=== PATIENT | male | born 1930 | race Caucasian/White ===

== ENCOUNTER 2016-11-06 17:51 | Emergency (ER) | payer MEDICARE, BC ==
[2016-11-06 18:33] VITALS: BP 135/65
--- NOTE | 2016-11-06 19:25 | UC ---
Laceration HPI - HPI Summary HPI Summary: 86 yo M cut his right lower leg on a rototiller approx 3 pm today. States the rototiller fell on him. Denies other injury. No LOC, no head injury. No neck pain or back pain. Pt is on warfarin, states his most recent INR was last week and was fine. Also cannot have tetanus due to allergic reaction. - History Of Current Complaint Chief Complaint: UCLaceration Stated Complaint: RIGHT LEG LAC Time Seen by Provider: 11/06/16 19:24 Hx Obtained From: Patient Laceration Location: Knee - right ant tibia Mechanism Of Injury: Sharp Trauma Onset/Duration: Sudden Onset, Lasting Hours, Still Present Severity: Moderate Pain Intensity: 3 Pain Scale Used: 0-10 Numeric Aggravating Factors: Nothing - Allergies/Home Medications Allergies/Adverse Reactions: Allergies Allergy/AdvReac Type Severity Reaction Status Date / Time Amiodarone Allergy Unknown Verified 11/06/16 19:25 Reaction Details Tetanus Toxoid Allergy Swelling Verified 11/06/16 18:39 Of Face,Lips,& Throat Home Medications: Home Medications Carvedilol TAB* [Coreg TAB*] 25 mg PO BID 11/06/16 [History Confirmed 11/06/16] Furosemide TAB* [Lasix TAB*] 40 mg PO BID 11/06/16 [History Confirmed 11/06/16] [id number] 1 tab PO DAILY 11/06/16 [History Confirmed 11/06/16] Warfarin TAB(*) [Coumadin TAB(*)] 1 mg PO 1700 11/06/16 [History Confirmed 11/06] PMH/Surg Hx/FS Hx/Imm Hx Cardiovascular History Of: Reports: Cardiac Disorders - bradycardia, cardiomyopthay, Defibrillator, Afib - Surgical History Surgical History: Yes Surgery Procedure, Year, and Place: Defibrillator implant - Family History Known Family History: Positive: Cardiac Disease - Social History Occupation: Retired Lives: With Family Alcohol Use: None Substance Use Type: None Smoking Status (MU): Never Smoked Tobacco Review of Systems Constitutional: Negative Skin: Other - laceration right ant tibia Eyes: Negative ENT: Negative Respiratory: Negative Cardiovascular: Negative Gastrointestinal: Negative Genitourinary: Negative Motor: Negative Neurovascular: Negative Musculoskeletal: Negative Neurological: Negative Psychological: Negative All Other Systems Reviewed And Are Negative: Yes Physical Exam Triage Information Reviewed: Yes Appearance: Well-Appearing, Well-Nourished, Pain Distress Vital Signs: Initial Vital Signs Temp 97.9 F 11/06/16 18:19 Pulse 69 11/06/16 18:19 Resp 14 11/06/16 18:19 BP 135/65 11/06/16 18:19 Pulse Ox 99 11/06/16 18:19 Vital Signs Reviewed: Yes Eyes: Positive: Conjunctiva Clear ENT: Positive: Normal ENT inspection Neck: Positive: Supple Respiratory: Positive: Lungs clear, Normal breath sounds, No respiratory distress Cardiovascular: Positive: RRR, No Murmur, Pulses Normal, Brisk Capillary Refill Musculoskeletal: Positive: Strength Intact, ROM Intact Neurological: Positive: Alert, Muscle Tone Normal Psychological Exam: Normal Skin: Positive: Other - laceration 6cm right ant tibia Laceration Repair - Laceration Repair 1 Description: Linear Laceration Size After Repair: Length (cm) - 6, Width (mm) - 3, Depth (mm) - 2 Contamination/FB Removal: no Modified For Repair: No Type Injection: Local Anesthesia Used: 2.0% Lido Cleansing Completed Via Routine Prep: Yes Irrigation With Pressure Irrigation Device: Yes Closure Material: Sutures Closure Method: Single Layer Suture Of: Skin Suture Type: Nylon - 15 Laceration Course/Dx - Course/Dx Course Of Treatment: daughter and granddaughter with pt. They all decline xray. "He walked in here". sutured, amoxicillin for prophylaxis against infection - Differential Dx - Laceration/Wound Differental Diagnoses: Foreign Body, Fracture, Laceration Provider Diagnoses: lower leg laceration with sutures. Discharge - Discharge Plan Condition: Stable Disposition: HOME Prescriptions: Amoxicillin CAP* [Amoxicillin 500 MG CAP*] 500 mg PO TID #21 cap Patient Education Materials: Care For Your Stitches (ED), Laceration (ED) Referrals: Jocelyne Sage DO [Primary Care Provider] - Additional Instructions: You have 15 stitches. We gave the first dose of amoxicillin tonight to prevent infection. jig grinder set up operator the prescription for the rest of the medication tomorrow. Please have your stitches removed in 10-14 days. Keep the wound clean and dry and watch for infection. Change the bandage daily after washing with soap and water. Use the priyanka wrap over the bandage to protect it. Return to urgent care or see your doctor if you have any new or worsening symptoms.
[2016-11-06] MEDS ORDERED: Lidocaine 2% PF * 5 ML VIAL INJ ONE ×2 (19:44→20:39)
[2016-11-06] MEDS ORDERED: Amoxicillin CAP* 500 MG PO ONE (20:42)
== END 2016-11-06 20:56 | disposition home or self-care (01) ==
LOC: UCCORT 17:51
DX: S81.811A Laceration without foreign body, right lower leg, initial encounter (principal); W45.8XXA Other foreign body or object entering through skin, initial encounter; Y93.9 Activity, unspecified; Y92.9 Unspecified place or not applicable; Z88.7 Allergy status to serum and vaccine; R00.1 Bradycardia, unspecified; I42.9 Cardiomyopathy, unspecified; Z95.0 Presence of cardiac pacemaker; Z79.01 Long term (current) use of anticoagulants
CPT/HCPCS: 12002; 99212; A9270-GY; G0463

== ENCOUNTER 2016-11-19 12:19 | Emergency (ER) | payer MEDICARE, BC ==
[2016-11-19 12:29] VITALS: BP 105/59
--- NOTE | 2016-11-19 12:47 | UC ---
HPI Wound/Suture Re-check - HPI Summary HPI Summary: here for suture removal sutures were placed here 14 days ago for a laceration of the right kline area has no complaint today , no pain , no discharge for the wound - History Of Current Complaint Chief Complaint: UCSkin Stated Complaint: SUTURE REMOVAL Time Seen by Provider: 11/19/16 12:24 Hx Obtained From: Patient Onset/Duration: Sudden Onset, Lasting Days - 14, Still Present Severity: Moderate Procedure Type: suture removal Surgery Date: 11/06/16 Full Body (No Head): 1 - 8 cm laceration right kline - Allergies/Home Medications Allergies/Adverse Reactions: Allergies Allergy/AdvReac Type Severity Reaction Status Date / Time Amiodarone Allergy Unknown Verified 11/19/16 12:24 Reaction Details Tetanus Toxoid Allergy Swelling Verified 11/19/16 12:24 Of Face,Lips,& Throat PMH/Surg Hx/FS Hx/Imm Hx Cardiovascular History Of: Reports: Cardiac Disorders - bradycardia, cardiomyopthay, Defibrillator, Afib - Surgical History Surgical History: Yes Surgery Procedure, Year, and Place: Defibrillator implant - Family History Known Family History: Positive: Cardiac Disease - Social History Alcohol Use: None Substance Use Type: None Smoking Status (MU): Never Smoked Tobacco Review of Systems Constitutional: Negative Eyes: Negative ENT: Negative Respiratory: Negative All Other Systems Reviewed And Are Negative: Yes Physical Exam Triage Information Reviewed: Yes Appearance: Well-Appearing, No Pain Distress, Well-Nourished Vital Signs: Initial Vital Signs Temp 98.4 F 11/19/16 12:26 Pulse 54 11/19/16 12:26 Resp 18 11/19/16 12:26 BP 105/59 11/19/16 12:26 Pulse Ox 100 11/19/16 12:26 Eye Exam: Normal Eyes: Positive: Conjunctiva Clear ENT: Positive: Normal ENT inspection, Hearing grossly normal Neck: Positive: Supple, Nontender, No Lymphadenopathy Respiratory: Positive: Chest non-tender, Lungs clear, Normal breath sounds Cardiovascular: Positive: RRR, No Murmur, Pulses Normal Skin: Positive: Other - right kline : + 8 cm laceration , sutures are intact, healing well, no swelling, no erythema, not tender Course/Dx - Differential Dx - Laceration/Wound Provider Diagnoses: suture removal Discharge - Discharge Plan Condition: Stable Disposition: HOME Patient Education Materials: Stitches Removal (ED) Referrals: Jocelyne Sage DO [Primary Care Provider] - If Needed
== END 2016-11-19 12:54 | disposition home or self-care (01) ==
LOC: UCCORT 12:19
DX: S81.811D Laceration without foreign body, right lower leg, subsequent encounter (principal); W45.8XXD Other foreign body or object entering through skin, subsequent encounter; Y92.9 Unspecified place or not applicable; I48.91 Unspecified atrial fibrillation; Z95.810 Presence of automatic (implantable) cardiac defibrillator; Z88.7 Allergy status to serum and vaccine; Z88.8 Allergy status to other drugs, medicaments and biological substances
CPT/HCPCS: 99211; G0463

== ENCOUNTER 2016-11-25 11:49 | Emergency (ER) | payer MEDICARE, BC ==
[2016-11-25 12:04] VITALS: BP 109/51
--- NOTE | 2016-11-25 12:18 | UC ---
Neck Pain HPI - HPI Summary HPI Summary: Patient has had 2 weeks of cervical spine pain, cant turn or move neck without pain, it is radiating down the left arm, denies any trauma, Hx of gout and is on blood thinners, patient sees a chiropractor regularly and was sent for evaluation by the chiropractor today. - History of Current Complaint Chief Complaint: UCBackPain Stated Complaint: NECK PAIN Time Seen by Provider: 11/25/16 12:04 Hx Obtained From: Patient Onset/Duration Of Injury/Symptoms: Weeks Mechanism Of Injury: No Known Trauma Timing: Constant Onset/Duration: Gradual Onset, Lasting Weeks Severity: Moderate Location: Discrete At: - c4 and c5 spinus process Character: Dull, Aching Aggravating Factors: Nothing Alleviating Factors: Nothing Associated Signs & Symptoms: Positive: Paresthesia - Allergies/Home Medications Allergies/Adverse Reactions: Allergies Allergy/AdvReac Type Severity Reaction Status Date / Time Amiodarone Allergy Unknown Verified 11/25/16 11:58 Reaction Details Tetanus Toxoid Allergy Swelling Verified 11/25/16 11:58 Of Face,Lips,& Throat Home Medications: Home Medications Probenecid TAB* [Benemid TAB*] 500 mg PO BID 11/25/16 [History Confirmed ] PMH/Surg Hx/FS Hx/Imm Hx Previously Healthy: Yes Cardiovascular History Of: Reports: Cardiac Disorders - bradycardia, cardiomyopthay, Defibrillator, Afib - Surgical History Surgical History: Yes Surgery Procedure, Year, and Place: Defibrillator implant - Family History Known Family History: Positive: Cardiac Disease - Social History Alcohol Use: None Substance Use Type: None Smoking Status (MU): Never Smoked Tobacco Review Of Systems Constitutional: Positive: Negative Skin: Positive: Negative Eyes: Positive: Negative ENT: Positive: Negative Respiratory: Positive: Negative Cardiovascular: Positive: Negative Gastrointestinal: Positive: Negative Genitourinary: Positive: Negative Musculoskeletal: Positive: Arthralgia, Myalgia Neurological: Positive: Headache Psychological: Positive: Negative All Other Systems Reviewed And Are Negative: Yes Physical Exam Triage Information Reviewed: Yes Appearance: Well-Nourished, Ill-Appearing, Pain Distress Vital Signs: Initial Vital Signs Temp 98.9 F 11/25/16 11:54 Pulse 64 11/25/16 11:54 Resp 18 11/25/16 11:54 BP 109/51 11/25/16 11:54 Pulse Ox 100 11/25/16 11:54 Vital Signs Reviewed: Yes Eye Exam: Normal Eyes: Positive: Conjunctiva Clear, Other: - large swelling under the eyes ENT Exam: Normal ENT: Positive: Normal ENT inspection, Hearing grossly normal, Pharynx normal, TMs normal Dental Exam: Normal Neck: Positive: Nontender - over c4 and c5, No Lymphadenopathy, Other: - ROM is very limited Respiratory Exam: Normal Respiratory: Positive: Chest non-tender, Lungs clear, Normal breath sounds Cardiovascular Exam: Normal Cardiovascular: Positive: RRR, No Murmur, Pulses Normal Abdominal Exam: Normal Abdomen Description: Positive: Nontender, No Organomegaly, Soft Bowel Sounds: Positive: Present Musculoskeletal Exam: Normal Musculoskeletal: Positive: Strength Intact, ROM Intact, No Edema Neurological Exam: Normal Neurological: Positive: Alert, Muscle Tone Normal Psychological Exam: Normal Skin Exam: Normal Neck Pain Course/Dx - Course Course Of Treatment: hx obtained, exam performed, meds reviewed, xray obtained of c spine no acute process, advances DJD. copy of xray and report given to patient - Differential Dx/Diagnosis Differential Dx/HQI/PQRI: Arthritis, Cervical Fracture, Dislocation, Sprain, Strain Provider Diagnoses: Cervical DJD Discharge - Discharge Plan Condition: Stable Disposition: HOME Patient Education Materials: Osteoarthritis (ED), Neck Pain (ED) Additional Instructions: 1. there is no acute injury in your nek at this time 2. I recommend heat and stretching to alleviate spasm. 3. Follow up as needed.
--- NOTE | 2016-11-25 12:59 | RAD ---
INDICATION: Atraumatic neck pain COMPARISON: None TECHNIQUE: Routine five-view imaging was performed FINDINGS: Bones: The bony structures are osteopenic. There are no acute appearing findings. There is advanced multilevel degenerative disc disease most severe between C3 and C5. There is a mild retrolisthesis of C3 on C4 and a mild anterolisthesis of C4 on C5 and C5 and C6. These are likely on the basis of degenerative change. There is multilevel facet arthropathy. Craniocervical junction: The odontoid and atlantodental interval are normal. Alignment: As above. There is also tilting of the head to the right Disc spaces: As above Soft tissues: The prevertebral soft tissues are normal. There are carotid arterial calcifications bilaterally IMPRESSION: ADVANCED MULTILEVEL DEGENERATIVE DISC DISEASE.
== END 2016-11-25 13:11 | disposition home or self-care (01) ==
LOC: UCCORT 11:49
DX: M50.30 Other cervical disc degeneration, unspecified cervical region (principal); I48.91 Unspecified atrial fibrillation; Z95.810 Presence of automatic (implantable) cardiac defibrillator; Z88.7 Allergy status to serum and vaccine; Z88.8 Allergy status to other drugs, medicaments and biological substances
CPT/HCPCS: 72050; 99211; G0463

== ENCOUNTER 2019-02-13 13:40 | Emergency (ER) | payer MEDICARE, BC ==
[2019-02-13 15:10] VITALS: BP 136/67
--- NOTE | 2019-02-13 16:12 | UC ---
Throat Pain/Nasal Everardo HPI - HPI Summary HPI Summary: 89 yo male with fairly acute onset of painful swallowing about 7 days ago Has no fever or wt loss needs to chew his food "until it is mush" or it feels like it will get stuck - History of Current Complaint Chief Complaint: UCGeneralIllness Stated Complaint: THROAT COMP Time Seen by Provider: 02/13/19 15:10 Hx Obtained From: Patient Onset/Duration: Sudden Onset, Lasting Weeks Severity: Moderate Pain Intensity: 5 Pain Scale Used: 0-10 Numeric Cough: None Associated Signs & Symptoms: Positive: Dysphagia - Epiglottits Risk Factors Epiglottis Risk Factors: Negative - Allergies/Home Medications Allergies/Adverse Reactions: Allergies Allergy/AdvReac Type Severity Reaction Status Date / Time amiodarone Allergy Unknown Verified 02/13/19 15:10 Reaction Details Tetanus Vaccines and Toxoid Allergy Swelling Verified 02/13/19 15:10 Of Face,Lips,& Throat PMH/Surg Hx/FS Hx/Imm Hx Previously Healthy: Yes Cardiovascular History: Hypertension, Pacemaker/ICD - Surgical History Surgical History: Yes Surgery Procedure, Year, and Place: Defibrillator implant. Pacemaker, Defrillator was turned off 06/2018 - Family History Known Family History: Positive: Cardiac Disease - Social History Occupation: Retired - exposure to asbestos both in [employer] and while working for [employer] Alcohol Use: None Substance Use Type: None Smoking Status (MU): Never Smoked Tobacco Review of Systems All Other Systems Reviewed And Are Negative: Yes Constitutional: Positive: Negative Skin: Positive: Negative Eyes: Positive: Negative ENT: Positive: Sore Throat Respiratory: Positive: Negative Cardiovascular: Positive: Negative Gastrointestinal: Positive: Negative Genitourinary: Positive: Negative Motor: Positive: Negative Neurovascular: Positive: Negative Musculoskeletal: Positive: Negative Neurological: Positive: Negative Psychological: Positive: Negative Physical Exam Triage Information Reviewed: Yes Appearance: Well-Appearing, No Pain Distress, Well-Nourished Vital Signs: Initial Vital Signs Temp 97.8 F 02/13/19 15:05 Pulse 67 02/13/19 15:05 Resp 16 02/13/19 15:05 BP 136/67 02/13/19 15:05 Pulse Ox 100 02/13/19 15:05 Vital Signs Reviewed: Yes Eyes: Positive: Conjunctiva Clear ENT: Positive: Pharynx normal. Negative: Hearing grossly normal - bilat hearing aids, Nasal congestion, Nasal drainage, Tonsillar swelling, Tonsillar exudate, Trismus, Muffled voice, Hoarse voice, Dental tenderness, Sinus tenderness, Uvula midline Neck: Positive: Supple, Nontender, No Lymphadenopathy Respiratory: Positive: Lungs clear, Normal breath sounds, No respiratory distress, No accessory muscle use Cardiovascular: Positive: RRR - with occas extrasystoles Musculoskeletal: Positive: No Edema Neurological: Positive: Alert Psychological Exam: Normal Skin Exam: Normal Diagnostics - Radiology No standard instances Radiology Interpretation Completed By: Radiologist Summary of Radiographic Findings: 1. CARDIOMEGALY. 2. CALCIFIED PLEURAL PLAQUES AND PLEURAL THICKENING SUGGESTIVE OF CHRONIC ASBESTOS. EXPOSURE. IMPRESSION: THERE IS INCREASED SOFT TISSUE DENSITY INFERIOR TO THE EPIGLOTTIS OVERLYING. THE PROXIMAL TRACHEA. RECOMMEND A CT OF THE NECK WITH CONTRAST FOR FURTHER EVALUATION. Throat Pain/Nasal Course/Dx - Differential Dx/Diagnosis Provider Diagnosis: Dysphagia, Pleural plaque due to asbestos exposure Discharge - Sign-Out/Discharge Documenting (check all that apply): Patient Departure All imaging exams completed and their final reports reviewed: Yes - Discharge Plan Condition: Stable Disposition: HOME Patient Education Materials: Dysphagia (ED) Referrals: Erin Sage DO [Primary Care Provider] - Additional Instructions: You have an appointment directly next door to us....tomorrow at 11AM You will see Dr. Erazo who is an command and control specialist Your symptoms need further investigation to determine the cause Blood work is pending He will be able to see your XRs soft no chew diet As an aside you have calcifications in your lungs from asbestos exposure - Billing Disposition and Condition Condition: STABLE Disposition: Home
--- OUTSIDE RECORDS SUMMARY | 2019-02-13 18:13 | XMS REPORT | Continuity of Care Document ---
:1930 External Reference #:[id number] Author Name Manda Lai, GORDON, RADIATOR TESTER Address [address] [place] [address] Care Team Providers Name Role Phone Homero Lyons MD [facility] Care Team Information Cosmetologist Apprentice Unavailable Erin Sage DO Primary Care Physician Unavailable Payers Date Identification Numbers Payment Provider Subscriber Policy Number: [id number] Medicare [place]arez PayID: [id number] [address] [place] [address] Effective: 2012 Policy Number: [id number] [facility] Rob[place] Suarez PayID: [id number] [address] [address] [place] [address] Effective: 1995 Policy Number: [id number] Medicare Arthur W Payne Expires: 2018 Group Name: Medicare [address] PayID: [id number] [place] [address] Problems Active Problems Provider Date Primary cardiomyopathy Manda Lai, GORDON, Onset: 08/04/2011 [employer] Atrial fibrillation Manda Lai, GORDON, Onset: 08/04/2011 [employer] TE[employer] Benign essential hypertension Manda Lai, MSN, Onset: 08/04/2011 [employer] TE[employer] Automatic implantable cardiac Manda Lai, GORDON, 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 [employer]IATOR TE[employer] Diarrhea Homero Lyons M.D., Onset: 03/02/2012 [facility] Anticoagulant agent Homero Lyons M.D., Onset: 09/05/2012 [facility] Cardiac pacemaker in situ Homero Lyons M.D., Onset: 09/05/2012 [facility] Rheumatic disease of tricuspid valve Homero Lyons M.D., Onset: 2013 [facility] Cardiomyopathy, unspecified Homero Lyons M.D., Onset: 06/28/2015 [facility] Essential hypertension Homero Lyons M.D., Onset: 06/28/2015 [facility] Edema Homero Lyons M.D., Onset: 11/13/2015 [facility] Chronic systolic (congestive) heart Homero Lyons M.D., Onset: 2015 failure [facility] Impaired renal function disorder Homero Lyons M.D., Onset: 09/11/2015 [facility] Chronic atrial fibrillation Homero Lyons M.D., Onset: 09/11/2015 [facility] Preoperative cardiovascular Homero Lyons M.D., Onset: 09/11/2015 examination [facility] Family History Date Family Member(s) Observation Comments : (age 74 Father due to [place] Years) Mother due to Natural () - in 90s Causes Social History Type Date Description Comments Sex Unknown Lives With Diet Patient follows no dietary restrictions Occupation Retired Tobacco Use Start: Unknown Never Smoked Cigarettes ETOH Use Rarely consumes alcohol Tobacco Use Start: Unknown Patient has never smoked Smoking Status Reviewed: 01/17/19 Patient has never smoked Allergies, Adverse Reactions, Alerts Active Allergies Reaction Severity Comments Date Tetanus 08/04/2011 Amiodarone Medications Active Medications SIG Qnty Indications Ordering Date Provider Warfarin Sodium 1 tab by mouth 180tabs Homero Lyons 2mg every day (1 mg) Aiden Villavicencio, [facility] Tablets Carvedilol take one tablet Unknown 6.25mg Tablets by mouth twice a day Furosemide 1/2 by mouth 90tabs I50.22 Lai, Manda 40mg Tablets every day GORDON Holley, RADIATOR TESTER Osteo Bi-Flex Regular 2 by mouth every Unknown Strength morning 250-200mg Tablets Probenecid 1 by mouth every Unknown 500mg Tablets day Acetaminophen take 1-2 tablets Unknown 500mg by mouth every 4 Tablets to 6 hours History Medications Metolazone 1 by mouth every 30tabs Homero Lyons 11/13/2015 - 5mg day 20 min before Aiden Villavicencio, [facility] Unknown Tablets lasix Lasix 1-2 tabs by mouth I50.22 Manda Lai 10/15/2015 - 20mg as needed for GORDON Holley, Unknown Tablets weight gain of 2-3 RADIATOR TESTER pounds over 2-3 days. Lasix 2 tabs by mouth I50.22 LaiBrandia 10/07/2015 - 20mg every day GORDON Holley, 10/15/2015 Tablets RADIATOR TESTER Zofran Odt 1 tab sublingual 30tabs R11.2 Manda Lai 10/07/2015 - 8mg D4sdhyi GORDON Holley, Unknown Tablets Dispers RADIATOR TESTER Potassium 1 by mouth twice a 180tabs R60.9 Homero Lyons 10/03/2015 - Chloride ER day Aiden Villavicencio, [facility] 10/07/2015 20Meq Tablets ER Lovenox subcutaneous twice 10units Homero Lyons 09/11/2015 - a day for 2 days Aiden Villavicencio, [facility] Unknown 80mg/0.8ML before the surgery Solution and two days after the surgery or until Inr 2-3 Lasix 1 by mouth daily 90tabs I42.9 Kia Carver MD 06/28/2015 - 20mg Unknown Tablets Furosemide 1/2 tab by mouth 428.0 Manda Lai 03/08/2015 - 40mg every day GORDON Holley, Unknown Tablets RADIATOR TESTER Furosemide 1 by mouth every 90tabs 428.0 Homero Lyons 01/17/2015 - 40mg day Aiden Villavicencio, [facility] 03/08/2015 Tablets Furosemide 1 by mouth every 90tabs I50.22 Homero Lyons 10/31/2014 - 20mg day as needed for Aiden Villavicencio, [facility] 12/21/2018 Tablets weight gain of 2 or more pounds per day Furosemide 2 tabs by mouth in 240tabs 428.0 LaiBrandia 10/24/2014 - 20mg the morning and 1 GORDON Holley, 10/31/2014 Tablets in the afternoon RADIATOR TESTER Klor-Con 10 1-2 tabs by mouth 180tabs 428.0 Lai, Manda 10/24/2014 - every day as GORDON Hloley, 10/25/2014 10Meq Tablets ER directed RADIATOR TESTER Tylenol PM Extra po prn 90tabs Unknown - Strength Unknown 500-25mg Tablets Osteo Bi-Flex 1 po qd Unknown - Advanced Triple Unknown Strength Tablets Furosemide take one tablet by 90tabs 428.0 Lai, Manda - 20mg mouth every day GORDON Holley, 10/24/2014 Tablets RADIATOR TESTER Carvedilol take one tablet by 180tabs Homero Lyons - 25mg mouth twice daily Aiden Villavicencio, [facility] 12/21/2018 Tablets Lisinopril take one tablet by 90tabs Kia Carver MD - 20mg mouth once daily Unknown Tablets Lasix 1 by mouth every 90tabs I42.9 Kia Carver MD - 20mg day 06/28/2015 Tablets Amlodipine 1 by mouth every I10 Unknown - Besylate day 10/15/2015 5mg Tablets Lasix 4 tabs in the am I42.9 Unknown - 20mg and 4 in pm 10/07/2015 Tablets R60.9 I42.0 Lisinopril 1 by mouth every day Unknown - Unknown 2.5mg Tablets Vital Signs Date Vital Result Comment 01/17/2019 2:00pm BP Systolic Sitting Left Arm 132 mmHg BP Diastolic Sitting Left Arm 80 mmHg Heart Rate 70 /min Respiratory Rate 18 /min Height 69 inches 5'9" Weight 165.00 lb BMI (Body Mass Index) 24.4 kg/m2 BSA (Body Surface Area) 1.90 m2 [place] body weight in kilograms 73 kg O2 % BldC Oximetry 97 % Ora 12/21/2018 7:02am BP Systolic Sitting Right Arm 112 mmHg BP Diastolic Sitting Right Arm 62 mmHg Heart Rate 90 /min Respiratory Rate 19 /min Height 69 inches 5'9" Weight 167.00 lb BMI (Body Mass Index) 24.7 kg/m2 BSA (Body Surface Area) 1.91 m2 [place] body weight in kilograms 73 kg O2 % BldC Oximetry 96 % 11/13/2015 11:46am BP Systolic Sitting Right Arm 122 mmHg BP Diastolic Sitting Right Arm 68 mmHg Respiratory Rate 16 /min Height 69 inches 5'9" Weight 175.00 lb BMI (Body Mass Index) 25.8 kg/m2 BSA (Body Surface Area) 1.95 m2 11/07/2015 11:25am BP Systolic Sitting Left Arm 116 mmHg BP Diastolic Sitting Left Arm 78 mmHg Heart Rate 76 /min Respiratory Rate 16 /min Height 69 inches 5'9" Weight 176.00 lb BMI (Body Mass Index) 26.0 kg/m2 BSA (Body Surface Area) 1.96 m2 10/15/2015 10:33am BP Systolic Sitting Left Arm 128 mmHg BP Diastolic Sitting Left Arm 58 mmHg Heart Rate 72 /min Height 69 inches 5'9" Weight 160.00 lb BMI (Body Mass Index) 23.6 kg/m2 BSA (Body Surface Area) 1.88 m2 10/07/2015 11:11am BP Systolic Sitting Left Arm 120 mmHg BP Diastolic Sitting Left Arm 66 mmHg Heart Rate 72 /min Respiratory Rate 16 /min Height 70 inches 5'10" Weight 168.00 lb BMI (Body Mass Index) 24.1 kg/m2 BSA (Body Surface Area) 1.94 m2 09/11/2015 11:06am BP Systolic Sitting Right Arm 130 mmHg BP Diastolic Sitting Right Arm 80 mmHg Heart Rate 63 /min Respiratory Rate 16 /min Height 70 inches 5'10" Weight 183.00 lb BMI (Body Mass Index) 26.3 kg/m2 BSA (Body Surface Area) 2.01 m2 06/28/2015 10:09am BP Systolic Sitting Left Arm 110 mmHg BP Diastolic Sitting Left Arm 68 mmHg Heart Rate 60 /min Respiratory Rate 16 /min Height 70 inches 5'10" Weight 192.00 lb BMI (Body Mass Index) 27.5 kg/m2 BSA (Body Surface Area) 2.05 m2 02/28/2015 10:54am BP Systolic Sitting Left Arm 110 mmHg BP Diastolic Sitting Left Arm 58 mmHg Heart Rate 72 /min Respiratory Rate 16 /min Height 70 inches 5'10" Weight 184.00 lb BMI (Body Mass Index) 26.4 kg/m2 BSA (Body Surface Area) 2.01 m2 01/17/2015 3:07pm BP Systolic Sitting Left Arm 104 mmHg BP Diastolic Sitting Left Arm 62 mmHg Heart Rate 62 /min Respiratory Rate 19 /min Height 70 inches 5'10" Weight 192.00 lb BMI (Body Mass Index) 27.5 kg/m2 BSA (Body Surface Area) 2.05 m2 10/31/2014 3:45pm BP Systolic Sitting Right Arm 122 mmHg BP Diastolic Sitting Right Arm 70 mmHg Heart Rate 68 /min Respiratory Rate 16 /min Height 70 inches 5'10" Weight 183.00 lb BMI (Body Mass Index) 26.3 kg/m2 BSA (Body Surface Area) 2.01 m2 10/24/2014 11:50am BP Systolic Sitting Right Arm 118 mmHg BP Diastolic Sitting Right Arm 70 mmHg Heart Rate 58 /min Respiratory Rate 18 /min Height 70 inches 5'10" Weight 193.00 lb BMI (Body Mass Index) 27.7 kg/m2 BSA (Body Surface Area) 2.06 m2 04/19/2014 1:09pm BP Systolic Sitting Left Arm 122 mmHg BP Diastolic Sitting Left Arm 68 mmHg Heart Rate 66 /min Respiratory Rate 16 /min Height 70 inches 5'10" Weight 189.00 lb BMI (Body Mass Index) 27.1 kg/m2 BSA (Body Surface Area) 2.04 m2 09/06/2013 11:57am BP Systolic Sitting Right Arm 118 mmHg BP Diastolic Sitting Right Arm 62 mmHg Respiratory Rate 16 /min Height 70 inches 5'10" Weight 190.00 lb BMI (Body Mass Index) 27.3 kg/m2 BSA (Body Surface Area) 2.04 m2 09/05/2012 1:57pm BP Systolic Sitting Right Arm 116 mmHg BP Diastolic Sitting Right Arm 80 mmHg Heart Rate 60 /min Irregular Respiratory Rate 16 /min Height 70 inches 5'10" Weight 193.00 lb BMI (Body Mass Index) 27.7 kg/m2 03/02/2012 11:10am BP Systolic Sitting Right Arm 118 mmHg BP Diastolic Sitting Right Arm 70 mmHg Heart Rate 56 /min Irregular Respiratory Rate 16 /min Height 70 inches 5'10" Weight 186.00 lb BMI (Body Mass Index) 26.7 kg/m2 09/02/2011 10:57am BP Systolic Sitting Right Arm 122 mmHg BP Diastolic Sitting Right Arm 56 mmHg Heart Rate 64 /min Irregular Respiratory Rate 16 /min Height 70 inches 5'10" Weight 192.00 lb BMI (Body Mass Index) 27.5 kg/m2 08/04/2011 9:02am BP Systolic Sitting Right Arm 136 mmHg BP Diastolic Sitting Right Arm 72 mmHg BP Systolic Sitting Left Arm 140 mmHg BP Diastolic Sitting Left Arm 74 mmHg Heart Rate 58 /min Respiratory Rate 14 /min Height 70 inches 5'10" Weight 190.00 lb BMI (Body Mass Index) 27.3 kg/m2 Results Test Date Facility Test Result H/L Range Note Protime 01/17/2019 [facility] Protime 31.0 seconds High 12.0-14.4 1 [address] [place] [address] [phone] Inr 2.9 High 0.9-1.1 2 Anticoagulant Therapy? YES Date of Last Dose: T-1 Time of Last Dose: 0800 Protime 12/21/2018 [facility] Protime 26.8 seconds High 12.0-14.4 [address] [place] [address] [phone] Inr 2.4 High 0.9-1.1 3 Anticoagulant Therapy? YES Date of Last Dose: 12/20/18 Time of Last Dose: 0800 Protime 01/01/2016 [facility] Protime 30.9 seconds High 12.0-14.4 [address] [place] [address] [phone] Inr 3.1 High 0.9-1.1 4 Protime 12/25/2015 [facility] Protime 32.9 seconds High 12.1-14.9 [address] [place] [address] [phone] Inr 3.3 High 0.9-1.1 5 PT W/Inr 12/11/2015 [facility] 2.9 Normalized Ratio Protime 12/10/2015 [facility] Protime 29.6 seconds High 12.1-14.9 [address] [place] [address] [phone] Inr 2.9 High 0.9-1.1 6 Protime 11/28/2015 [facility] Protime 31.5 seconds High 12.1-14.9 [address] [place], [place] [address] [phone] Inr 3.0 High 0.9-1.1 7 Comprehensive Metabolic 11/07/2015 [facility] Glucose 95 mg/dL 74-106 Panel [address] [place], [place] [id number] [phone] BUN 22 mg/dL High 7-18 Creatinine 1.3 mg/dL 0.6-1.3 Glom Filtration Rate, Estimate 56 mL/min >60 If >60 mL/min >60 8 BUN/Creat 16.9 ratio Sodium 133 mmol/L Low 136-145 Potassium 4.6 mmol/L 3.5-5.1 Chloride 101 mmol/L 98-107 Carbon Dioxide 24 mmol/L 21-32 Anion Gap 8 mEq/L 8-16 Calcium 8.8 mg/dL 8.5-10.1 Total Protein 6.9 g/dL 6.4-8.2 Albumin 2.8 g/dL Low 3.4-5.0 Globulin 4.1 g/dL 1.9-4.3 Alb/Glob 0.7 ratio Bilirubin,Total 0.7 mg/dL 0.2-1.0 Sgot/Ast 19 U/L 15-37 SGPT/Alt 23 U/L 12-78 Alkaline Phosphatase 118 U/L High 45-117 Laboratory test 11/07/2015 [facility] Magnesium 2.4 mg/dL 1.8-2.4 finding [address] [place], [place] [id number] [phone] Basic Metabolic 10/17/2015 [facility] Sodium 128 mmol /L Low 133-145 Panel [phone] Potassium 6.0 mmol/L High 3.5-5.0 Chloride 95 mmol/L Low 101-111 Co2 Carbon Dioxide 26 mmol/L Normal 22-32 Anion Gap 7 mmol/L Normal 2-11 Glucose 97 mg/dL Normal 70-100 Blood Urea Nitrogen 66 mg/dL High 6-24 Creatinine 1.55 mg/dL High 0.67-1.17 BUN/Creatinine Ratio 42.6 High 8-20 Calcium 9.0 mg/dL Normal 8.6-10.3 Egfr Non- 42.8 Normal >60 Egfr 55.1 Normal >60 9 Protime 10/17/2015 [facility] Inr 7.82 Critical high 0.89-1.11 10 [phone] Protime 10/07/2015 [facility] Protime 20.5 seconds High 12.1-14.9 [address] [place], [place] [address] [phone] Inr 1.7 High 0.9-1.1 11 Laboratory test 10/07/2015 [facility] Magnesium 2.3 mg/dL 1.8-2.4 finding [address] [place], [place] [address] [phone] Comprehensive 10/07/2015 [facility] Glucose 136 mg/dL High 74-106 Metabolic Panel [address] [place], [place] [address] [phone] BUN 55 mg/dL High 7-18 Creatinine 1.5 mg/dL High 0.6-1.3 Glom Filtration Rate, Estimate 47 mL/min >60 If 57 mL/min >60 12 BUN/Creat 36.6 ratio Sodium 137 mmol/L 136-145 Potassium 4.3 mmol/L 3.5-5.1 Chloride 96 mmol/L Low 98-107 Carbon Dioxide 31 mmol/L 21-32 Anion Gap 10 mEq/L 8-16 Calcium 9.9 mg/dL 8.5-10.1 Total Protein 7.4 g/dL 6.4-8.2 Albumin 3.4 g/dL 3.4-5.0 Globulin 4.0 g/dL 1.9-4.3 Alb/Glob 0.9 ratio Bilirubin,Total 2.4 mg/dL High 0.2-1.0 Sgot/Ast 39 U/L High 15-37 SGPT/Alt 51 U/L 12-78 Alkaline Phosphatase 108 U/L 45-117 PT W/Inr 08/15/2015 [facility] 7.8 Normalized Ratio Protime 08/14/2015 [facility] Protime 31.1 seconds High 12.1-14.9 [address] [place], [place] [address] [phone] Inr 3.0 High 0.9-1.1 13 Basic Metabolic Panel 07/17/2015 [facility] Glucose 94 mg/dL 74-106 [address] [place] [address] [phone] BUN 47 mg/dL High 7-18 Creatinine 1.8 mg/dL High 0.6-1.3 Glom Filtration Rate, Estimate 38 mL/min >60 If 46 mL/min >60 14 BUN/Creat 26.1 ratio Sodium 141 mmol/L 136-145 Potassium 4.8 mmol/L 3.5-5.1 Chloride 108 mmol/L High 98-107 Carbon Dioxide 23 mmol/L 21-32 Anion Gap 10 mEq/L 8-16 Calcium 9.3 mg/dL 8.5-10.1 Protime 07/17/2015 [facility] Protime 31.4 seconds High 12.1-14.9 [address] [place] [address] [phone] Inr 3.0 High 0.9-1.1 15 Protime 06/11/2015 [facility] Protime 30.7 seconds High 12.1-14.9 [address] [place] [address] [phone] Inr 2.9 High 0.9-1.1 16 Protime 05/15/2015 [facility] Protime 32.4 seconds High 12.0-14.4 [address] [place] [address] [phone] Inr 3.1 High 0.9-1.1 17 Protime 04/17/2015 [facility] Protime 29.1 seconds High 12.0-14.4 [address] [place] [address] [phone] Inr 2.7 High 0.9-1.1 18 Protime 04/03/2015 [facility] Protime 32.7 seconds High 12.0-14.4 [address] [place], [place] [address] [phone] Inr 3.2 High 0.9-1.1 19 Laboratory test finding 03/06/2015 [facility] Magnesium 2.0 mg/dL 1.8-2.4 [address] [place] [address] [phone] Basic Metabolic Panel 03/06/2015 [facility] Glucose 95 mg/dL 74-106 [address] [place] [address] [phone] BUN 43 mg/dL High 7-18 Creatinine 2.0 mg/dL High 0.6-1.3 Glom Filtration Rate, Estimate 34 mL/min >60 If 41 mL/min >60 20 BUN/Creat 21.5 ratio Sodium 137 mmol/L 136-145 Potassium 4.9 mmol/L 3.5-5.1 Chloride 104 mmol/L 98-107 Carbon Dioxide 28 mmol/L 21-32 Anion Gap 5 mEq/L Low 8-16 Calcium 9.9 mg/dL 8.5-10.1 Protime 03/06/2015 [facility] Protime 29.6 seconds High 12.0-14.4 [address] [place] [address] [phone] Inr 2.8 High 0.9-1.1 21 Protime 02/06/2015 [facility] Protime 26.5 seconds High 12.0-14.4 [address] [place] [address] [phone] Inr 2.4 High 0.9-1.1 22 Protime 01/23/2015 [facility] Protime 18.2 seconds High 12.0-14.4 [address] [place] [address] [phone] Inr 1.5 High 0.9-1.1 23 Protime 01/09/2015 [facility] Protime 26.1 seconds High 12.0-14.4 [address] [place] [address] [phone] Inr 2.4 High 0.9-1.1 24 Protime 01/02/2015 [facility] Protime 35.0 seconds High 12.0-14.4 25 [address] [place] [address] [phone] Inr 3.5 High 0.9-1.1 26 Protime 12/19/2014 [facility] Protime 25.7 seconds High 12.0-14.4 [address] [place] [address] [phone] Inr 2.3 High 0.9-1.1 27 Protime 12/13/2014 [facility] Protime 38.6 seconds High 12.1-14.9 [address] [place] [address] [phone] Inr 3.9 High 0.9-1.1 28 Protime 11/28/2014 [facility] Protime 32.4 seconds High 12.1-14.9 [address] [place] [address] [phone] Inr 3.2 High 0.9-1.1 29 PT W/Inr 10/31/2014 [facility] 3.0 Normalized Ratio Basic Metabolic 10/31/2014 [facility] Glucose 83 mg/dL 74-106 Panel [address] [place] [address] [phone] BUN 48 mg/dL High 7-18 Creatinine 1.9 mg/dL High 0.6-1.3 Glom Filtration Rate, Estimate 36 mL/min >60 If 44 mL/min >60 30 BUN/Creat 25.2 ratio Sodium 140 mmol/L 136-145 Potassium 5.1 mmol/L 3.5-5.1 Chloride 106 mmol/L 98-107 Carbon Dioxide 29 mmol/L 21-32 Anion Gap 5 mEq/L Low 8-16 Calcium 9.4 mg/dL 8.5-10.1 Laboratory test 10/31/2014 [facility] Magnesium 1.9 mg/dL 1.8-2.4 finding [address] [place] [address] [phone] Protime 10/31/2014 [facility] Protime 30.8 seconds High 12.1-14.9 [address] [place] [address] [phone] Inr 3.0 High 0.9-1.1 31 Comprehensive Metabolic 10/24/2014 [facility] Glucose 89 mg/dL 74-106 Panel [address] [place] [address] [phone] BUN 40 mg/dL High 7-18 Creatinine 1.8 mg/dL High 0.6-1.3 Glom Filtration Rate, Estimate 38 mL/min >60 If 46 mL/min >60 32 BUN/Creat 22.2 ratio Sodium 140 mmol/L 136-145 Potassium 5.2 mmol/L High 3.5-5.1 Chloride 108 mmol/L High 98-107 Carbon Dioxide 24 mmol/L 21-32 Anion Gap 8 mEq/L 8-16 Calcium 9.1 mg/dL 8.5-10.1 Total Protein 7.1 g/dL 6.4-8.2 Albumin 3.5 g/dL 3.4-5.0 Globulin 3.6 g/dL 1.9-4.3 Alb/Glob 1.0 ratio Bilirubin,Total 0.8 mg/dL 0.2-1.0 Sgot/Ast 18 U/L 15-37 SGPT/Alt 14 U/L 12-78 Alkaline Phosphatase 82 U/L 45-117 Laboratory test finding 10/24/2014 [facility] Magnesium 1.9 mg/dL 1.8-2.4 [address] [place] [address] [phone] Thyroid Stim Hormone 2.45 uIU/mL 0.36-3.74 Protime 10/03/2014 [facility] Protime 26.1 seconds High 12.1-14.9 [address] [place] [address] [phone] Inr 2.4 High 0.9-1.1 33 Protime 09/05/2014 [facility] Protime 29.7 seconds High 12.1-14.9 [address] [place] [address] [phone] Inr 2.9 High 0.9-1.1 34 Protime 08/08/2014 [facility] Protime 27.8 seconds High 12.1-14.9 [address] [place] [address] [phone] Inr 2.7 High 0.9-1.1 35 Protime 07/25/2014 [facility] Protime 34.7 seconds High 12.1-14.9 [address] [place], [place] [address] [phone] Inr 3.6 High 0.9-1.1 36 Protime 06/25/2014 [facility] Protime 27.4 seconds High 12.1-14.9 [address] [place] [address] [phone] Inr 2.6 High 0.9-1.1 37 Protime 06/13/2014 [facility] Protime 34.1 seconds High 12.1-14.9 [address] [place] [address] [phone] Inr 3.5 High 0.9-1.1 38 Protime 05/16/2014 [facility] Protime 29.5 seconds High 12.1-14.9 [address] [place] [address] [phone] Inr 2.9 High 0.9-1.1 39 Basic Metabolic Panel 04/11/2014 [facility] Glucose 95 mg/dL 74-106 [address] [place] [address] [phone] BUN 33 mg/dL High 7-18 Creatinine 1.7 mg/dL High 0.6-1.3 Glom Filtration Rate, Estimate 41 mL/min >60 If 50 mL/min >60 40 BUN/Creat 19.4 ratio Sodium 141 mmol/L 136-145 Potassium 5.4 mmol/L High 3.5-5.1 Chloride 106 mmol/L 98-107 Carbon Dioxide 28 mmol/L 21-32 Anion Gap 12 mEq/L 8-16 Calcium 9.4 mg/dL 8.5-10.1 Protime 04/11/2014 [facility] Protime 26.4 seconds High 12.0-14.4 [address] [place] [address] [phone] Inr 2.5 High 0.9-1.1 41 Protime 03/14/2014 [facility] Protime 26.0 seconds High 12.1-14.9 [address] [place] [address] [phone] Inr 2.4 High 0.9-1.1 42 Protime 02/14/2014 [facility] Protime 27.1 seconds High 12.1-14.9 [address] [place] [address] [phone] Inr 2.6 High 0.9-1.1 43 Protime 01/17/2014 [facility] Protime 26.0 seconds High 12.1-14.9 [address] [place] [address] [phone] Inr 2.4 High 0.9-1.1 44 Protime 12/20/2013 [facility] Protime 23.4 seconds High 12.1-14.9 [address] [place] [address] [phone] Inr 2.1 High 0.9-1.1 45 Protime 11/22/2013 [facility] Protime 29.7 seconds High 12.1-14.9 [address] [place] [address] [phone] Inr 2.9 High 0.9-1.1 46 Protime 10/25/2013 [facility] Protime 30.5 seconds High 12.1-14.9 [address] [place] [address] [phone] Inr 3.0 High 0.9-1.1 47 Protime 09/22/2013 [facility] Protime 30.9 seconds High 12.0-14.4 [address] [place] [address] [phone] Inr 3.0 High 0.9-1.1 48 Protime 08/24/2013 [facility] Protime 23.2 seconds High 12.0-14.4 [address] [place] [address] [phone] Inr 2.1 High 0.9-1.1 49 Protime 07/27/2013 [facility] Protime 32.2 seconds High 12.0-14.4 [address] [place] [address] [phone] Inr 3.1 High 0.9-1.1 50 Protime 06/29/2013 [facility] Protime 30.6 seconds High 12.0-14.4 [address] [place] [address] [phone] Inr 2.9 High 0.9-1.1 51 Protime 06/15/2013 [facility] Protime 30.1 seconds High 12.0-14.4 [address] [place] [address] [phone] Inr 2.9 High 0.9-1.1 52 Protime 06/01/2013 [facility] Protime 28.6 seconds High 12.0-14.4 [address] [place] [address] [phone] Inr 2.7 High 0.9-1.1 53 Protime 05/25/2013 [facility] Protime 19.5 seconds High 12.1-14.9 [address] [place] [address] [phone] Inr 1.7 High 0.9-1.1 54 Protime 05/03/2013 [employer] Protime 27.1 seconds High 12.0-14.4 [address] [place] [address] [phone] Inr 2.5 High 0.9-1.1 55 Protime 04/19/2013 [employer] Protime 32.2 seconds High 12.0-14.4 [address] [place] [address] [phone] Inr 3.1 High 0.9-1.1 56 Protime 03/22/2013 [facility] Protime 27.8 seconds High 12.0-14.4 [address] [place] [address] [phone] Inr 2.6 High 0.9-1.1 57 Protime 02/22/2013 [facility] Protime 27.0 seconds High 12.1-14.9 [address] [place] [address] [phone] Inr 2.5 High 0.9-1.1 58 Protime 01/23/2013 [facility] Protime 28.0 seconds High 12.1-14.9 [address] [place] [address] [phone] Inr 2.6 High 0.9-1.1 59 Protime 12/26/2012 [facility] Protime 23.5 seconds High 12.1-14.9 [address] [place] [address] [phone] Inr 2.1 High 0.9-1.1 60 Protime 11/23/2012 [facility] Protime 27.7 seconds High 12.0-14.4 [address] [place] [address] [phone] Inr 2.6 High 0.9-1.1 61 Protime 10/26/2012 [employer] Protime 30.4 seconds High 12.0-14.4 [address] [place] [address] [phone] Inr 2.9 High 0.9-1.1 62 Protime 09/28/2012 [facility] Protime 25.1 seconds High 12.0-14.4 [address] [place] [address] [phone] Inr 2.3 High 0.9-1.1 63 Protime 08/31/2012 [facility] Protime 30.3 seconds High 12.1-14.9 [address] [place] [address] [phone] Inr 2.8 High 0.9-1.1 64 Protime 08/03/2012 [facility] Protime 24.4 seconds High 12.1-14.9 [address] [place] [address] [phone] Inr 2.2 High 0.9-1.1 65 Protime 07/06/2012 [facility] Protime 27.4 seconds High 12.1-14.9 [address] [place] [address] [phone] Inr 2.5 High 0.9-1.1 66 Protime 06/06/2012 [facility] Protime 31.1 seconds High 12.1-14.9 [address] [place] [address] [phone] Inr 2.9 High 0.9-1.1 67 Laboratory test 05/26/2012 [facility] Reticulocyte 1.0 % 0.8-2.1 finding 134 [facility] Count,[place] [address] [phone] CBC 05/26/2012 [facility] White Blood Count 7.4 3.4-10.5 134 [facility] [place] [address] [phone] Red Blood Count 4.02 M/uL Low 4.20-5.80 Hemoglobin 12.3 gm/dL Low 12.8-17.0 Hematocrit 38.4 % 38.0-48.0 Mean Cell Volume 95.5 fl 80.0-96.0 Mean Corpuscular HGB 30.6 pg 27.0-33.0 Mean Corpuscular HGB Conc 32.0 g/dL 31.7-36.0 Platelet Count 920 K/uL High 150-400 Red Cell Distri Width %CV 14.3 % 11.6-15.8 Mean Platelet Volume 10.6 fL 6.6-10.6 Comprehensive Metabolic 05/26/2012 [facility] Glucose 96 mg/dL 76-115 Panel [address] [place], [place] [id number] [phone] BUN 30 mg/dL High 5-23 Creatinine 1.4 mg/dL 0.5-1.4 Glom Filtration Rate, Estimate 52 mL/min >60 If >60 mL/min >60 68 BUN/Creat 21.4 ratio Sodium 142 mmol/L 136-145 Potassium 4.9 mmol/L 3.5-5.1 Chloride 110 mmol/L High 98-107 Carbon Dioxide 26 mEq/L 18-29 Anion Gap 11 mEq/L 8-16 Calcium 9.5 mg/dL 8.5-10.1 Total Protein 7.6 g/dL 6.3-8.0 Albumin 3.6 g/dL 3.5-5.0 Globulin 4.0 g/dL 1.9-4.3 Alb/Glob 0.9 ratio Bilirubin,Total 0.7 mg/dL 0.2-1.2 Sgot/Ast 16 U/L 16-40 SGPT/Alt 21 U/L Low 30-65 Alkaline Phosphatase 65 U/L 50-136 Vitamin B12 And 05/26/2012 [facility] Vitamin B12 368 pg/mL 200-900 69 Folate [address] [place], [place] [id number] [phone] Folic Acid 17.1 ng/mL High 6.0-15.4 Laboratory test 05/26/2012 [facility] Ferritin 249.3 ng/mL High 5-244 finding [address] [place] [address] [phone] Protime 05/09/2012 [facility] Protime 29.2 seconds High 12.1-14.9 [address] [place], [place] [id number] [phone] Inr 2.7 High 0.9-1.1 70 Protime 04/08/2012 [facility] Protime 28.8 seconds High 12.1-14.9 [address] [place] [address] [phone] Inr 2.7 High 0.9-1.1 71 Protime 03/10/2012 [facility] Protime 33.0 seconds High 12.1-14.9 [address] [place] [address] [phone] Inr 3.2 High 0.9-1.1 72 Protime 02/04/2012 [facility] Protime 27.5 seconds High 12.2-15.2 [address] [place] [address] [phone] Inr 2.5 High 0.9-1.1 73 Protime 01/06/2012 [facility] Protime 25.9 seconds High 12.2-15.2 [address] [place] [address] [phone] Inr 2.3 High 0.9-1.1 74 Protime 12/23/2011 [facility] Protime 27.0 seconds High 12.2-15.2 [address] [place] [address] [phone] Inr 2.4 High 0.9-1.1 75 Protime 12/09/2011 [facility] Protime 34.9 seconds High 12.2-15.2 [address] [place] [address] [phone] Inr 3.3 High 0.9-1.1 76 Protime 11/11/2011 [facility] Protime 32.6 seconds High 12.2-15.2 [address] [place] [address] [phone] Inr 3.1 High 0.9-1.1 77 Protime 10/28/2011 [facility] Protime 30.1 seconds High 12.2-15.2 [address] [place] [address] [phone] Inr 2.8 High 0.9-1.1 78 Protime 10/21/2011 [facility] Protime 28.2 seconds High 12.2-15.2 [address] [place] [address] [phone] Inr 2.5 High 0.9-1.1 79 Protime 10/14/2011 [facility] Protime 22.7 seconds High 12.2-15.2 [address] [place] [address] [phone] Inr 1.9 High 0.9-1.1 80 Protime 09/16/2011 [facility] Protime 25.8 seconds High 12.2-15.2 [address] [place] [address] [phone] Inr 2.3 High 0.9-1.1 81 Protime 09/02/2011 [facility] Protime 30.6 seconds High 12.2-15.2 [address] [place] [address] [phone] Inr 2.8 High 0.9-1.1 82 Protime 08/26/2011 [facility] Protime 35.1 seconds High 12.2-15.2 [address] [place] [address] [phone] Inr 3.4 High 0.9-1.1 83 Protime 08/20/2011 [facility] Protime 34.8 seconds High 12.2-15.2 [address] [place] [address] [phone] Inr 3.3 High 0.9-1.1 84 Protime 08/12/2011 [facility] Protime 31.4 seconds High 12.2-15.2 [address] [place] [address] [phone] Inr 2.9 High 0.9-1.1 85 Protime 08/04/2011 [facility] Protime 22.5 seconds High 12.2-15.2 [address] [place] [address] [phone] Inr 1.9 High 0.9-1.1 86 Basic Metabolic Panel 08/04/2011 [facility] Glucose 91 mg/dL 76-115 [address] [place] [address] [phone] BUN 31 mg/dL High 5-23 Creatinine 1.5 mg/dL High 0.5-1.4 Glom Filtration Rate, Estimate 48 mL/min >60 If 58 mL/min >60 87 BUN/Creat 20.6 ratio Sodium 141 mmol/L 136-145 Potassium 4.6 mmol/L 3.5-5.1 Chloride 106 mmol/L 98-107 Carbon Dioxide 25 mEq/L 18-29 Anion Gap 15 mEq/L 8-16 Calcium 9.7 mg/dL 8.5-10.1 Laboratory test finding 08/04/2011 [facility] Magnesium 1.8 mg/dL 1.7-2.3 [address] [place] [address] [phone] Thyroid Stim Hormone 1.78 uIU/mL 0.49-4.67 CBC 08/04/2011 [facility] White Blood Count 7.8 K/uL 3.4-10.5 [address] [place] [address] [phone] Red Blood Count 4.16 M/uL Low 4.20-5.80 Hemoglobin 12.4 gm/dL Low 12.8-17.0 Hematocrit 39.8 % 38.0-48.0 Mean Cell Volume 95.7 fl 80.0-96.0 Mean Corpuscular HGB 29.8 pg 27.0-33.0 Mean Corpuscular HGB Conc 31.2 g/dL Low 31.7-36.0 Platelet Count 965 K/uL High 150-400 Red Cell Distri Width %CV 14.4 % 11.6-15.8 Mean Platelet Volume 10.4 fL 6.6-10.6 Laboratory test finding 08/04/2011 [facility] Protime See Note 88 [address] [place] [address] [phone] 1 I48.2 2 THERAPEUTIC INR RANGE: 2.0 - 3.0 DVT, Pulmonary embolus, prophylaxis against venous thrombosis or systemic embolization in high risk patients. 2.5 - 3.5 Mechanical heart valves 3 THERAPEUTIC INR RANGE: 2.0 - 3.0 DVT, Pulmonary embolus, prophylaxis against venous thrombosis or systemic embolization in high risk patients. 2.5 - 3.5 Mechanical heart valves 4 THERAPEUTIC INR RANGE: 2.0 - 3.0 DVT, Pulmonary embolus, prophylaxis against venous thrombosis or systemic embolization in high risk patients. 2.5 - 3.5 Mechanical heart valves 5 THERAPEUTIC INR RANGE: 2.0 - 3.0 DVT, Pulmonary embolus, prophylaxis against venous thrombosis or systemic embolization in high risk patients. 2.5 - 3.5 Mechanical heart valves 6 THERAPEUTIC INR RANGE: 2.0 - 3.0 DVT, Pulmonary embolus, prophylaxis against venous thrombosis or systemic embolization in high risk patients. 2.5 - 3.5 Mechanical heart valves 7 THERAPEUTIC INR RANGE: 2.0 - 3.0 DVT, Pulmonary embolus, prophylaxis against venous thrombosis or systemic embolization in high risk patients. 2.5 - 3.5 Mechanical heart valves 8 Note: Persistent reduction for 3 months or more in an eGFR <60 mL/min/1.73 m2 defines CKD. Patients with eGFR values >/=60 mL/min/1.73 m2 may also have CKD if evidence of persistent proteinuria is present. The original MDRD equation for estimated GFR is not valid for patients less than 18 years of age. Additional information may be found at www.kdoqi.org. 9 Because ethnic data is not always readily available, this report includes an eGFR for both -Americans and non- Americans. The National Kidney Disease Education Program (NKDEP) does not endorse the use of the MDRD equation for patients that are not between the ages of 18 and 70, are , have extremes of body size, muscle mass, or nutritional status, or are non- or non-. According to the National Kidney Foundation, irrespective of diagnosis, the stage of the disease is based on the level of kidney function: Stage Description GFR(mL/min/1.73 m(2)) 1 Kidney damage with normal or decreased GFR 90 2 Kidney damage with mild decrease in GFR 60-89 3 Moderate decrease in GFR 30-59 4 Severe decrease in GFR 15-29 5 Kidney failure <15 (or dialysis) 10 Attempted Verbal - Line Busy [id number] at 1518 on 10/17/15. 11 THERAPEUTIC INR RANGE: 2.0 - 3.0 DVT, Pulmonary embolus, prophylaxis against venous thrombosis or systemic embolization in high risk patients. 2.5 - 3.5 Mechanical heart valves 12 Note: Persistent reduction for 3 months or more in an eGFR <60 mL/min/1.73 m2 defines CKD. Patients with eGFR values >/=60 mL/min/1.73 m2 may also have CKD if evidence of persistent proteinuria is present. The original MDRD equation for estimated GFR is not valid for patients less than 18 years of age. Additional information may be found at www.kdoqi.org. 13 THERAPEUTIC INR RANGE: 2.0 - 3.0 DVT, Pulmonary embolus, prophylaxis against venous thrombosis or systemic embolization in high risk patients. 2.5 - 3.5 Mechanical heart valves 14 Note: Persistent reduction for 3 months or more in an eGFR <60 mL/min/1.73 m2 defines CKD. Patients with eGFR values >/=60 mL/min/1.73 m2 may also have CKD if evidence of persistent proteinuria is present. The original MDRD equation for estimated GFR is not valid for patients less than 18 years of age. Additional information may be found at www.kdoqi.org. 15 THERAPEUTIC INR RANGE: 2.0 - 3.0 DVT, Pulmonary embolus, prophylaxis against venous thrombosis or systemic embolization in high risk patients. 2.5 - 3.5 Mechanical heart valves 16 THERAPEUTIC INR RANGE: 2.0 - 3.0 DVT, Pulmonary embolus, prophylaxis against venous thrombosis or systemic embolization in high risk patients. 2.5 - 3.5 Mechanical heart valves 17 THERAPEUTIC INR RANGE: 2.0 - 3.0 DVT, Pulmonary embolus, prophylaxis against venous thrombosis or systemic embolization in high risk patients. 2.5 - 3.5 Mechanical heart valves 18 THERAPEUTIC INR RANGE: 2.0 - 3.0 DVT, Pulmonary embolus, prophylaxis against venous thrombosis or systemic embolization in high risk patients. 2.5 - 3.5 Mechanical heart valves 19 THERAPEUTIC INR RANGE: 2.0 - 3.0 DVT, Pulmonary embolus, prophylaxis against venous thrombosis or systemic embolization in high risk patients. 2.5 - 3.5 Mechanical heart valves 20 Note: Persistent reduction for 3 months or more in an eGFR <60 mL/min/1.73 m2 defines CKD. Patients with eGFR values >/=60 mL/min/1.73 m2 may also have CKD if evidence of persistent proteinuria is present. The original MDRD equation for estimated GFR is not valid for patients less than 18 years of age. Additional information may be found at www.kdoqi.org. 21 THERAPEUTIC INR RANGE: 2.0 - 3.0 DVT, Pulmonary embolus, prophylaxis against venous thrombosis or systemic embolization in high risk patients. 2.5 - 3.5 Mechanical heart valves 22 THERAPEUTIC INR RANGE: 2.0 - 3.0 DVT, Pulmonary embolus, prophylaxis against venous thrombosis or systemic embolization in high risk patients. 2.5 - 3.5 Mechanical heart valves 23 THERAPEUTIC INR RANGE: 2.0 - 3.0 DVT, Pulmonary embolus, prophylaxis against venous thrombosis or systemic embolization in high risk patients. 2.5 - 3.5 Mechanical heart valves 24 THERAPEUTIC INR RANGE: 2.0 - 3.0 DVT, Pulmonary embolus, prophylaxis against venous thrombosis or systemic embolization in high risk patients. 2.5 - 3.5 Mechanical heart valves 25 STANDING ORDER- WEEKLY AND PRN 26 THERAPEUTIC INR RANGE: 2.0 - 3.0 DVT, Pulmonary embolus, prophylaxis against venous thrombosis or systemic embolization in high risk patients. 2.5 - 3.5 Mechanical heart valves 27 THERAPEUTIC INR RANGE: 2.0 - 3.0 DVT, Pulmonary embolus, prophylaxis against venous thrombosis or systemic embolization in high risk patients. 2.5 - 3.5 Mechanical heart valves 28 THERAPEUTIC INR RANGE: 2.0 - 3.0 DVT, Pulmonary embolus, prophylaxis against venous thrombosis or systemic embolization in high risk patients. 2.5 - 3.5 Mechanical heart valves 29 THERAPEUTIC INR RANGE: 2.0 - 3.0 DVT, Pulmonary embolus, prophylaxis against venous thrombosis or systemic embolization in high risk patients. 2.5 - 3.5 Mechanical heart valves 30 Note: Persistent reduction for 3 months or more in an eGFR <60 mL/min/1.73 m2 defines CKD. Patients with eGFR values >/=60 mL/min/1.73 m2 may also have CKD if evidence of persistent proteinuria is present. The original MDRD equation for estimated GFR is not valid for patients less than 18 years of age. Additional information may be found at www.kdoqi.org. 31 THERAPEUTIC INR RANGE: 2.0 - 3.0 DVT, Pulmonary embolus, prophylaxis against venous thrombosis or systemic embolization in high risk patients. 2.5 - 3.5 Mechanical heart valves 32 Note: Persistent reduction for 3 months or more in an eGFR <60 mL/min/1.73 m2 defines CKD. Patients with eGFR values >/=60 mL/min/1.73 m2 may also have CKD if evidence of persistent proteinuria is present. The original MDRD equation for estimated GFR is not valid for patients less than 18 years of age. Additional information may be found at www.kdoqi.org. 33 THERAPEUTIC INR RANGE: 2.0 - 3.0 DVT, Pulmonary embolus, prophylaxis against venous thrombosis or systemic embolization in high risk patients. 2.5 - 3.5 Mechanical heart valves 34 THERAPEUTIC INR RANGE: 2.0 - 3.0 DVT, Pulmonary embolus, prophylaxis against venous thrombosis or systemic embolization in high risk patients. 2.5 - 3.5 Mechanical heart valves 35 THERAPEUTIC INR RANGE: 2.0 - 3.0 DVT, Pulmonary embolus, prophylaxis against venous thrombosis or systemic embolization in high risk patients. 2.5 - 3.5 Mechanical heart valves 36 THERAPEUTIC INR RANGE: 2.0 - 3.0 DVT, Pulmonary embolus, prophylaxis against venous thrombosis or systemic embolization in high risk patients. 2.5 - 3.5 Mechanical heart valves 37 THERAPEUTIC INR RANGE: 2.0 - 3.0 DVT, Pulmonary embolus, prophylaxis against venous thrombosis or systemic embolization in high risk patients. 2.5 - 3.5 Mechanical heart valves 38 THERAPEUTIC INR RANGE: 2.0 - 3.0 DVT, Pulmonary embolus, prophylaxis against venous thrombosis or systemic embolization in high risk patients. 2.5 - 3.5 Mechanical heart valves 39 THERAPEUTIC INR RANGE: 2.0 - 3.0 DVT, Pulmonary embolus, prophylaxis against venous thrombosis or systemic embolization in high risk patients. 2.5 - 3.5 Mechanical heart valves 40 Note: Persistent reduction for 3 months or more in an eGFR <60 mL/min/1.73 m2 defines CKD. Patients with eGFR values >/=60 mL/min/1.73 m2 may also have CKD if evidence of persistent proteinuria is present. The original MDRD equation for estimated GFR is not valid for patients less than 18 years of age. Additional information may be found at www.kdoqi.org. 41 THERAPEUTIC INR RANGE: 2.0 - 3.0 DVT, Pulmonary embolus, prophylaxis against venous thrombosis or systemic embolization in high risk patients. 2.5 - 3.5 Mechanical heart valves 42 THERAPEUTIC INR RANGE: 2.0 - 3.0 DVT, Pulmonary embolus, prophylaxis against venous thrombosis or systemic embolization in high risk patients. 2.5 - 3.5 Mechanical heart valves 43 THERAPEUTIC INR RANGE: 2.0 - 3.0 DVT, Pulmonary embolus, prophylaxis against venous thrombosis or systemic embolization in high risk patients. 2.5 - 3.5 Mechanical heart valves 44 THERAPEUTIC INR RANGE: 2.0 - 3.0 DVT, Pulmonary embolus, prophylaxis against venous thrombosis or systemic embolization in high risk patients. 2.5 - 3.5 Mechanical heart valves 45 THERAPEUTIC INR RANGE: 2.0 - 3.0 DVT, Pulmonary embolus, prophylaxis against venous thrombosis or systemic embolization in high risk patients. 2.5 - 3.5 Mechanical heart valves 46 THERAPEUTIC INR RANGE: 2.0 - 3.0 DVT, Pulmonary embolus, prophylaxis against venous thrombosis or systemic embolization in high risk patients. 2.5 - 3.5 Mechanical heart valves 47 THERAPEUTIC INR RANGE: 2.0 - 3.0 DVT, Pulmonary embolus, prophylaxis against venous thrombosis or systemic embolization in high risk patients. 2.5 - 3.5 Mechanical heart valves 48 THERAPEUTIC INR RANGE: 2.0 - 3.0 DVT, Pulmonary embolus, prophylaxis against venous thrombosis or systemic embolization in high risk patients. 2.5 - 3.5 Mechanical heart valves 49 THERAPEUTIC INR RANGE: 2.0 - 3.0 DVT, Pulmonary embolus, prophylaxis against venous thrombosis or systemic embolization in high risk patients. 2.5 - 3.5 Mechanical heart valves 50 THERAPEUTIC INR RANGE: 2.0 - 3.0 DVT, Pulmonary embolus, prophylaxis against venous thrombosis or systemic embolization in high risk patients. 2.5 - 3.5 Mechanical heart valves 51 THERAPEUTIC INR RANGE: 2.0 - 3.0 DVT, Pulmonary embolus, prophylaxis against venous thrombosis or systemic embolization in high risk patients. 2.5 - 3.5 Mechanical heart valves 52 THERAPEUTIC INR RANGE: 2.0 - 3.0 DVT, Pulmonary embolus, prophylaxis against venous thrombosis or systemic embolization in high risk patients. 2.5 - 3.5 Mechanical heart valves 53 THERAPEUTIC INR RANGE: 2.0 - 3.0 DVT, Pulmonary embolus, prophylaxis against venous thrombosis or systemic embolization in high risk patients. 2.5 - 3.5 Mechanical heart valves 54 THERAPEUTIC INR RANGE: 2.0 - 3.0 DVT, Pulmonary embolus, prophylaxis against venous thrombosis or systemic embolization in high risk patients. 2.5 - 3.5 Mechanical heart valves 55 THERAPEUTIC INR RANGE: 2.0 - 3.0 DVT, Pulmonary embolus, prophylaxis against venous thrombosis or systemic embolization in high risk patients. 2.5 - 3.5 Mechanical heart valves 56 THERAPEUTIC INR RANGE: 2.0 - 3.0 DVT, Pulmonary embolus, prophylaxis against venous thrombosis or systemic embolization in high risk patients. 2.5 - 3.5 Mechanical heart valves 57 THERAPEUTIC INR RANGE: 2.0 - 3.0 DVT, Pulmonary embolus, prophylaxis against venous thrombosis or systemic embolization in high risk patients. 2.5 - 3.5 Mechanical heart valves 58 THERAPEUTIC INR RANGE: 2.0 - 3.0 DVT, Pulmonary embolus, prophylaxis against venous thrombosis or systemic embolization in high risk patients. 2.5 - 3.5 Mechanical heart valves 59 THERAPEUTIC INR RANGE: 2.0 - 3.0 DVT, Pulmonary embolus, prophylaxis against venous thrombosis or systemic embolization in high risk patients. 2.5 - 3.5 Mechanical heart valves 60 THERAPEUTIC INR RANGE: 2.0 - 3.0 DVT, Pulmonary embolus, prophylaxis against venous thrombosis or systemic embolization in high risk patients. 2.5 - 3.5 Mechanical heart valves 61 THERAPEUTIC INR RANGE: 2.0 - 3.0 DVT, Pulmonary embolus, prophylaxis against venous thrombosis or systemic embolization in high risk patients. 2.5 - 3.5 Mechanical heart valves 62 THERAPEUTIC INR RANGE: 2.0 - 3.0 DVT, Pulmonary embolus, prophylaxis against venous thrombosis or systemic embolization in high risk patients. 2.5 - 3.5 Mechanical heart valves 63 THERAPEUTIC INR RANGE: 2.0 - 3.0 DVT, Pulmonary embolus, prophylaxis against venous thrombosis or systemic embolization in high risk patients. 2.5 - 3.5 Mechanical heart valves 64 THERAPEUTIC INR RANGE: 2.0 - 3.0 DVT, Pulmonary embolus, prophylaxis against venous thrombosis or systemic embolization in high risk patients. 2.5 - 3.5 Mechanical heart valves 65 THERAPEUTIC INR RANGE: 2.0 - 3.0 DVT, Pulmonary embolus, prophylaxis against venous thrombosis or systemic embolization in high risk patients. 2.5 - 3.5 Mechanical heart valves 66 THERAPEUTIC INR RANGE: 2.0 - 3.0 DVT, Pulmonary embolus, prophylaxis against venous thrombosis or systemic embolization in high risk patients. 2.5 - 3.5 Mechanical heart valves 67 THERAPEUTIC INR RANGE: 2.0 - 3.0 DVT, Pulmonary embolus, prophylaxis against venous thrombosis or systemic embolization in high risk patients. 2.5 - 3.5 Mechanical heart valves 68 Note: Persistent reduction for 3 months or more in an eGFR <60 mL/min/1.73 m2 defines CKD. Patients with eGFR values >/=60 mL/min/1.73 m2 may also have CKD if evidence of persistent proteinuria is present. The original MDRD equation for estimated GFR is not valid for patients less than 18 years of age. Additional information may be found at www.kdoqi.org. 69 Borderline result. Homocysteine and Methylmalonic acid should be considered for values greater than 200 pg/mL and less that 400 pg/mL. 70 THERAPEUTIC INR RANGE: 2.0 - 3.0 DVT, Pulmonary embolus, prophylaxis against venous thrombosis or systemic embolization in high risk patients. 2.5 - 3.5 Mechanical heart valves 71 THERAPEUTIC INR RANGE: 2.0 - 3.0 DVT, Pulmonary embolus, prophylaxis against venous thrombosis or systemic embolization in high risk patients. 2.5 - 3.5 Mechanical heart valves 72 THERAPEUTIC INR RANGE: 2.0 - 3.0 DVT, Pulmonary embolus, prophylaxis against venous thrombosis or systemic embolization in high risk patients. 2.5 - 3.5 Mechanical heart valves 73 THERAPEUTIC INR RANGE: 2.0 - 3.0 DVT, Pulmonary embolus, prophylaxis against venous thrombosis or systemic embolization in high risk patients. 2.5 - 3.5 Mechanical heart valves 74 THERAPEUTIC INR RANGE: 2.0 - 3.0 DVT, Pulmonary embolus, prophylaxis against venous thrombosis or systemic embolization in high risk patients. 2.5 - 3.5 Mechanical heart valves 75 THERAPEUTIC INR RANGE: 2.0 - 3.0 DVT, Pulmonary embolus, prophylaxis against venous thrombosis or systemic embolization in high risk patients. 2.5 - 3.5 Mechanical heart valves 76 THERAPEUTIC INR RANGE: 2.0 - 3.0 DVT, Pulmonary embolus, prophylaxis against venous thrombosis or systemic embolization in high risk patients. 2.5 - 3.5 Mechanical heart valves 77 THERAPEUTIC INR RANGE: 2.0 - 3.0 DVT, Pulmonary embolus, prophylaxis against venous thrombosis or systemic embolization in high risk patients. 2.5 - 3.5 Mechanical heart valves 78 THERAPEUTIC INR RANGE: 2.0 - 3.0 DVT, Pulmonary embolus, prophylaxis against venous thrombosis or systemic embolization in high risk patients. 2.5 - 3.5 Mechanical heart valves 79 THERAPEUTIC INR RANGE: 2.0 - 3.0 DVT, Pulmonary embolus, prophylaxis against venous thrombosis or systemic embolization in high risk patients. 2.5 - 3.5 Mechanical heart valves 80 THERAPEUTIC INR RANGE: 2.0 - 3.0 DVT, Pulmonary embolus, prophylaxis against venous thrombosis or systemic embolization in high risk patients. 2.5 - 3.5 Mechanical heart valves 81 THERAPEUTIC INR RANGE: 2.0 - 3.0 DVT, Pulmonary embolus, prophylaxis against venous thrombosis or systemic embolization in high risk patients. 2.5 - 3.5 Mechanical heart valves 82 THERAPEUTIC INR RANGE: 2.0 - 3.0 DVT, Pulmonary embolus, prophylaxis against venous thrombosis or systemic embolization in high risk patients. 2.5 - 3.5 Mechanical heart valves 83 THERAPEUTIC INR RANGE: 2.0 - 3.0 DVT, Pulmonary embolus, prophylaxis against venous thrombosis or systemic embolization in high risk patients. 2.5 - 3.5 Mechanical heart valves 84 THERAPEUTIC INR RANGE: 2.0 - 3.0 DVT, Pulmonary embolus, prophylaxis against venous thrombosis or systemic embolization in high risk patients. 2.5 - 3.5 Mechanical heart valves 85 THERAPEUTIC INR RANGE: 2.0 - 3.0 DVT, Pulmonary embolus, prophylaxis against venous thrombosis or systemic embolization in high risk patients. 2.5 - 3.5 Mechanical heart valves 86 THERAPEUTIC INR RANGE: 2.0 - 3.0 DVT, Pulmonary embolus, prophylaxis against venous thrombosis or systemic embolization in high risk patients. 2.5 - 3.5 Mechanical heart valves 87 Note: Persistent reduction for 3 months or more in an eGFR <60 mL/min/1.73 m2 defines CKD. Patients with eGFR values >/=60 mL/min/1.73 m2 may also have CKD if evidence of persistent proteinuria is present. The original MDRD equation for estimated GFR is not valid for patients less than 18 years of age. Additional information may be found at www.kdoqi.org. 88 08/04/11 LAB.MPT WRONG ACCOUNT Procedures Date Code Description Status 12/21/2018 02186 EKG-Tracing And Report Completed 11/15/2015 52920 Echocardiogram Complete Completed 09/11/2015 46252 EKG-Tracing And Report Completed 06/28/2015 21622 Cardioversion/Defibril. Single Lead Pacemaker Completed 02/28/2015 37745 Cardioversion/Defibril. Single Lead Pacemaker Completed 02/28/2015 33004 Cardioversion/Defibril. Single Lead Pacemaker Completed 10/24/2014 81399 EKG-Tracing And Report Completed 04/19/2014 16204 Echocardiogram Complete Completed 09/06/2013 53057 EKG-Tracing And Report Completed 09/02/2011 92077 Echocardiogram Complete Completed 09/02/2011 15168 Cardioversion/Defibril. Single Lead Pacemaker Completed 08/04/2011 22171 EKG-Tracing And Report Completed 08/04/2011 09140 EKG-Tracing And Report Completed Encounters Type Date Location Provider Dx Diagnosis Office Visit 01/17/2019 Cardiology Office Manda Lai I42.9 Cardiomyopathy, 2:00p GORDON Holley, unspecified RADIATOR TESTER I48.2 Chronic atrial fibrillation R55 Syncope and collapse Z95.810 Presence of automatic (implantable) cardiac defibrillator Office Visit 12/21/2018 Cardiology Homero Lyons I48.2 Chronic atrial 7:00a Office MCarlito, M.D., [facility] fibrillation I42.9 Cardiomyopathy, unspecified Z95.810 Presence of automatic (implantable) cardiac defibrillator R60.0 Localized edema Office Visit 11/13/2015 11:40a Cardiology Office Homero Lyons R60.0 Localized edema Aiden Villavicencio, FACC I48.2 Chronic atrial fibrillation Z95.810 Presence of automatic (implantable) cardiac defibrillator Office Visit 11/07/2015 Cardiology Manda Lai 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, (congestive) heart RADIATOR TESTER failure I48.2 Chronic atrial fibrillation I10 Essential (primary) hypertension Z95.810 Presence of automatic (implantable) cardiac defibrillator Office Visit 10/18/2015 3:17p Yin Obrien, R55 [facility] D64.9 Anemia, unspecified Z91.81 History of falling Office Visit 10/15/2015 Cardiology Manda Lai I50.22 Chronic systolic 10:30a Office GORDON Holley, (congestive) heart RADIATOR TESTER failure I48.2 Chronic atrial fibrillation R11.2 Nausea with vomiting, unspecified I10 Essential (primary) hypertension Z95.810 Presence of automatic (implantable) cardiac defibrillator 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, unsp Office Visit 10/07/2015 11:00a Cardiology Manda Lai R60.9 Edema, Office Kishan, GORDON, unspecified RADIATOR TESTER R11.2 Nausea with vomiting, unspecified I48.2 Chronic atrial fibrillation I42.0 Dilated cardiomyopathy Z95.810 Presence of automatic (implantable) cardiac defibrillator I10 Essential (primary) hypertension Office Visit 09/24/2015 Cardiology Eloy I48.2 Chronic atrial 2:40p Office Homero Villavicencio M.D., fibrillation FACC Office Visit 09/11/2015 Cardiology Eloy, Z01.810 Encounter for 11:00a Office Homero Villavicencio M.D., preprocedural [facility] cardiovascular examination I42.0 Dilated cardiomyopathy I48.2 Chronic atrial fibrillation Z95.810 Presence of automatic (implantable) cardiac defibrillator 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, unsp I50.22 Chronic systolic (congestive) heart failure Office Visit 06/28/2015 10:30a Cardiology Office Katerine De La Cruz I48.0 Paroxysmal atrial A., ANP fibrillation I42.9 Cardiomyopathy, unspecified Z95.810 Presence of automatic (implantable) cardiac defibrillator I10 Essential (primary) hypertension 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, [facility] Office Visit 02/28/2015 Cardiology Manda Lai 425.4 Cardiomyopathy 11:00a Office GORDON Holley, Other Prim RADIATOR TESTER 401.1 Hypertension Benign 427.31 Atrial Fibrillation V45.02 Cardiac Defibrillator Automatic Implantable Postsurgical 588.9 Renal Function Impairment Disorders Unspec 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 Office Visit 01/17/2015 Cardiology Homero Lyons 425.4 Cardiomyopathy 3:00p Office Aiden Villavicencio, [facility] Other Prim 401.1 Hypertension Benign 427.31 Atrial Fibrillation V45.02 Cardiac Defibrillator Automatic Implantable Postsurgical Office Visit 10/31/2014 3:40p Cardiology Manda Lai 428.0 Congestive Heart Office GORDON Holley, Failure RADIATOR TESTER Unspecified 425.4 Cardiomyopathy Other Prim 401.1 Hypertension Benign 276.7 Hyperpotassemia 397.0 Tricuspid Valve Disease V45.02 Cardiac Defibrillator Automatic Implantable Postsurgical Office Visit 10/24/2014 11:40a Cardiology Manda Lai 428.0 Congestive Heart Office GORDON Holley, Failure RADIATOR TESTER Unspecified 425.4 Cardiomyopathy Other Prim 427.31 Atrial Fibrillation 401.1 Hypertension Benign 397.0 Tricuspid Valve Disease V45.02 Cardiac Defibrillator Automatic Implantable Postsurgical Office Visit 04/19/2014 Cardiology Homero Lyons 427.31 Atrial 1:00p Office Aiden Villavicencio, [facility] Fibrillation 425.4 Cardiomyopathy Other Prim 401.1 Hypertension Benign V45.02 Cardiac Defibrillator Automatic Implantable Postsurgical 397.0 Tricuspid Valve Disease Office Visit 09/06/2013 Cardiology Homero Lyons 425.4 Cardiomyopathy 11:40a Office Aiden Villavicencio, [facility] Other Prim 427.31 Atrial Fibrillation V45.01 Cardiac Pacemaker In Situ Postsurgical 401.1 Hypertension Benign Office Visit 09/05/2012 Cardiology Homero Lyons 427.31 Atrial 2:00p Office Aiden Villavicencio, FACC Fibrillation V58.61 Anticoagulants Language Therapist (Current) Use Encounter 401.1 Hypertension Benign V45.01 Cardiac Pacemaker In Situ Postsurgical Office Visit 03/02/2012 Cardiology Homero Lyons 427.31 Atrial 11:00a Office Aiden Villavicencio, FACC Fibrillation 401.1 Hypertension Benign 787.91 Diarrhea Office Visit 09/02/2011 Cardiology Homero Lyons 427.31 Atrial 11:00a Office Aiden Villavicencio, FACC Fibrillation 425.4 Cardiomyopathy Other Prim 401.1 Hypertension Benign V45.02 Cardiac Defibrillator Automatic Implantable Postsurgical Office Visit 08/04/2011 Cardiology Manda Lai 425.4 Cardiomyopathy 9:10a Office GORDON Holley, Other Prim RADIATOR TESTER 427.31 Atrial Fibrillation 401.1 Hypertension Benign V45.02 Cardiac Defibrillator Automatic Implantable Postsurgical Plan of Treatment Future Appointment(s):05/24/2019 2:10 pm - Manda Lai, GORDON, RADIATOR TESTER at Cardiology Jbxnaa4505/24/2019 2:00 pm - Manda Lai, GORDON, RADIATOR TESTER at Cardiology [id number]/17/2019 - Manda Lai, GORDON, FNPI42.9 Cardiomyopathy, unspecifiedComments:No changes.I48.2 Chronic atrial fibrillationNew Labs:Protime, Scheduled: 01/24/19R55 Syncope and collapseComments:[id number] Presence of automatic (implantable) cardiac defibrillatorComments:Followed in our ICD clinic, per protocolAllFollow up: [facility] of ICD.
[2019-02-14 11:05] LABS: Hematocrit 36 % (42-52); Hemoglobin 12.2 g/dL (14.0-18.0); Mean Corpuscular HGB Conc 34 g/dL (31-36); Mean Corpuscular Hemoglobin 33 pg (27-31); Mean Corpuscular Volume 96 fL (80-94); Mean Platelet Volume 9.8 fL (7.4-10.4); Platelet Count 718 10^3/uL (150-450); Red Blood Count 3.71 10^6 /uL (4.18-5.48); Red Cell Distribution Width 16 % (10-15); White Blood Count 6.9 10^3/uL (3.5-10.8)
[2019-02-14 11:39] LABS: ABS Basophils 0.1 10^3/ul (0-0.2); ABS Eosinophils 0.2 10^3/ul (0-0.6); ABS Lymphocytes 1.2 10^3/ul (1.0-4.8); ABS Monocytes 1.2 10^3/ul (0-0.8); ABS Neutrophils 4.2 10^3/ul (1.5-7.7); Eosinophil % 2.2 %; Lymphocyte % 17.8 %; Nucleated Red Blood Cells % 0.1
[2019-02-14 12:45] LABS: Erythrocyte Sed Rate 34 mm/Hr (0-19)
--- NOTE | 2019-02-15 07:25 | UC ---
- Progress Note Progress Note: Blood work from February 13, 2019 comes back. Patient is mildly anemic with a hemoglobin of 12.2 and hematocrit of 36. Platelet count is elevated at 718. The total number of absolute monocytes is also elevated at 1.2. Sedimentation rate is slightly elevated at 34. Patient call patient and inform him to follow up with his primary care doctor for his macrocytic anemia and thrombocytosis and monocytosis. If his symptoms have worsened he needs to be reevaluated in the emergency department. Course/Dx - Diagnoses Provider Diagnoses: Dysphagia, Pleural plaque due to asbestos exposure Discharge - Sign-Out/Discharge Documenting (check all that apply): Patient Departure All imaging exams completed and their final reports reviewed: Yes - Discharge Plan Condition: Stable Disposition: HOME Patient Education Materials: Dysphagia (ED) Referrals: Erin Sage DO [Primary Care Provider] - Additional Instructions: You have an appointment directly next door to us....tomorrow at 11AM You will see Dr. Erazo who is an early breastfeeding care specialist Your symptoms need further investigation to determine the cause Blood work is pending He will be able to see your XRs soft no chew diet As an aside you have calcifications in your lungs from asbestos exposure - Billing Disposition and Condition Condition: STABLE Disposition: Home
== END 2019-02-13 16:24 | disposition home or self-care (01) ==
LOC: UCCORT 13:40
DX: R13.10 Dysphagia, unspecified (principal); J92.0 Pleural plaque with presence of asbestos; I10 Essential (primary) hypertension; Z95.0 Presence of cardiac pacemaker
CPT/HCPCS: 36415; 71046; 72020; 84443; 85025; 85060; 85652; 99211; G0463